=== PATIENT | female | born 1965 | race Caucasian/White ===

== ENCOUNTER 2019-02-25 11:27 | Outpatient (CLI) | payer MEDICAID ==
[2019-02-25] VITALS (21 sets, daily range): BP systolic 106–139; BP diastolic 75–98
[~2019-02-25 11:27] MED LIST: BACL20TA PO; DIAZ10TA PO; DIAZ5TAB PO; DULO-31 PO; GABA600T PO; HYDR-4383 PO; IBUP-24 PO; PANT-47 PO; PROC-8 PO; TRAM50TA2 PO; WARF6TAB PO
== END 2019-02-25 23:59 | disposition home or self-care (01) ==
LOC: CARD DIAG 11:27
PROVIDERS: ATTEND Internal Medicine Cardiovascular Disease
DX: R55 Syncope and collapse (principal); I10 Essential (primary) hypertension; F17.200 Nicotine dependence, unspecified, uncomplicated; Z79.01 Long term (current) use of anticoagulants; Z79.899 Other long term (current) drug therapy; Z86.718 Personal history of other venous thrombosis and embolism
CPT/HCPCS: 93660

== ENCOUNTER 2022-04-09 14:27 | Emergency (ER) | payer MEDICAID ==
[~2022-04-09] VITALS: Ht 170.2 cm; Wt 64.1 kg
[2022-04-09 15:15] VITALS: BP 120/79
== END 2022-04-09 16:29 | disposition home or self-care (01) ==
LOC: ER 14:27
DX: S93.402A Sprain of unspecified ligament of left ankle, initial encounter (principal); M25.572 Pain in left ankle and joints of left foot; I10 Essential (primary) hypertension; K21.9 Gastro-esophageal reflux disease without esophagitis; G89.29 Other chronic pain; F15.90 Other stimulant use, unspecified, uncomplicated; F11.90 Opioid use, unspecified, uncomplicated; Z86.718 Personal history of other venous thrombosis and embolism; Z90.710 Acquired absence of both cervix and uterus; Z98.890 Other specified postprocedural states; Z88.5 Allergy status to narcotic agent; Z79.899 Other long term (current) drug therapy; W01.0XXA Fall on same level from slipping, tripping and stumbling without subsequent striking against object, initial encounter; Y93.K1 Activity, walking an animal; Y92.89 Other specified places as the place of occurrence of the external cause; Y99.8 Other external cause status
CPT/HCPCS: 73564; 73610; 73630; 99284; L4360

== ENCOUNTER 2024-01-26 14:40 | Outpatient (CLI) | payer MEDICAID ==
[~2024-01-26 14:40] MED LIST changes: +DIAZ-546 PO; -DIAZ10TA PO
== END 2024-01-26 23:59 | disposition home or self-care (01) ==
LOC: RAD 14:40
PROVIDERS: ATTEND Student in an Organized Health Care Education/Training Program
DX: M54.50 Low back pain, unspecified (principal)
CPT/HCPCS: 72070; 72110

== ENCOUNTER 2024-11-09 12:07 | Emergency (ER) | payer MEDICAID ==
[~2024-11-09] VITALS: Ht 175.3 cm; Wt 63.1 kg
[2024-11-09] MEDS: docusate sodium 100mg/10ml UD cup PO SCH (12:25)
[2024-11-09] MEDS ORDERED: NEOM10SO7 LEFT EAR (13:09)
[2024-11-09] MEDS ORDERED: PRED50TA PO (13:09)
[2024-11-09] MEDS ORDERED: PROM118S5 PO (13:09)
== END 2024-11-09 13:43 | disposition home or self-care (01) ==
LOC: ER 12:08
DX: H61.22 Impacted cerumen, left ear (principal); R05.9 Cough, unspecified; I10 Essential (primary) hypertension; K21.9 Gastro-esophageal reflux disease without esophagitis; F15.90 Other stimulant use, unspecified, uncomplicated; F11.90 Opioid use, unspecified, uncomplicated; Z88.5 Allergy status to narcotic agent; Z88.6 Allergy status to analgesic agent; Z88.8 Allergy status to other drugs, medicaments and biological substances; Z90.710 Acquired absence of both cervix and uterus
CPT/HCPCS: 69209; 71045; 99283

== ENCOUNTER 2025-03-01 12:26 | Outpatient (CLI) | payer MEDICAID ==
[~2025-03-01 12:26] MED LIST changes: +NEOM10SO7 LEFT EAR; +PRED50TA PO
[2025-03-01 12:55] LABS: BASOPHILS # (AUTO) 0.1 X10'3 (0-0.2); EOSINOPHILS # (AUTO) 0.2 X10'3 (0-0.9); EOSINOPHILS % (AUTO) 2.9 % (0-6); HEMATOCRIT 43.2 % (35.0-45.0); HEMOGLOBIN 14.5 g/dl (12.0-16.0); LYMPHOCYTES # (AUTO) 2.6 X10'3 (1.1-4.8); LYMPHOCYTES % (AUTO) 33.6 % (21-51); MEAN CORPUSCULAR HEMOGLOBIN 31.4 PG (27.0-31.0); MEAN CORPUSCULAR HGB CONC 33.6 g/dL (33.0-36.5); MEAN CORPUSCULAR VOLUME 93.5 FL (78-98); MEAN PLATELET VOLUME 7.5 FL (7.4-10.4); MONOCYTES # (AUTO) 0.7 X10'3 (0-0.9); MONOCYTES % (AUTO) 8.7 % (2-12); NEUTROPHILS # (AUTO) 4.2 X10'3 (1.8-7.7); NEUTROPHILS % (AUTO) 53.8 % (42-75); PLATELET COUNT 314 X10'3 (140-440); RED BLOOD COUNT 4.62 X10'6 (4.20-5.60); RED CELL DISTRIBUTION WIDTH 13.9 % (11.5-14.5); WHITE BLOOD COUNT 7.7 X10'3 (4.5-11.0)
[2025-03-01 13:23] LABS: ALANINE AMINOTRANSFERASE 20 U/L (12-78); ALBUMIN 4.1 G/DL (3.4-5.0); ALBUMIN/GLOBULIN RATIO 1.3 (1.1-1.5); ALKALINE PHOSPHATASE 97 IU/L (46-116); ANION GAP 7 (8-16); ASPARTATE AMINO TRANSFERASE 15 U/L (10-37); BILIRUBIN,TOTAL 0.3 MG/DL (0.1-1.0); BLOOD UREA NITROGEN 20 MG/DL (7-18); CALCIUM 9.1 MG/DL (8.5-10.1); CHLORIDE 107 MMOL/L (99-107); GLUCOSE 100 MG/DL (70-104); POTASSIUM 4.2 MMOL/L (3.5-5.1); SODIUM 142 MMOL/L (135-145); TOTAL CARBON DIOXIDE 27.9 MMOL/L (24-32); TOTAL PROTEIN 7.3 G/DL (6.4-8.2); eGFR 73 ML/MIN
[2025-03-01] MEDS ORDERED: GADOTERATE MEGLUMINE 7.5 MMOL/15 ML VIAL IV ONE (15:24)
--- NOTE | 2025-03-01 20:59 | RADIOLOGY REPORT ---
EXAM: MR MRI HEAD HISTORY: SENSORINEURAL HEARING LOSS, BILATERAL COMPARISON: None TECHNIQUE: Coverage: Brain with detailed imaging of the internal auditory canals and posterior fossa IV contrast: 12 mL of Clariscan Adverse events: None Patient was screened for magnet prior to scan. Multisequence, multiplanar imaging. FINDINGS: INTERNAL AUDITORY CANALS: No mass or abnormal enhancement identified. Cranial nerves VII and VIII ar e unremarkable. SUPRATENTORIAL REGION: No acute abnormality. No suspicious lesion. POSTERIOR FOSSA: No acute abnormality. No suspicious lesion. BRAINSTEM: Unremarkable. SUPRASELLAR/SELLAR REGION: Within normal limits. VENTRICLES, CISTERNS, SULCI: Age-appropriate. ORBITS: Unremarkable. PARANASAL SINUSES: Unremarkable. MASTOID AIR CELLS: Small bilateral mastoid effusions. VASCULATURE: Unremarkable. BONES/SOFT TISSUES: No acute abnormality. OTHER: None. IMPRESSION: 1. No suspicious abnormality the posterior fossa, cerebellopontine angles and internal auditory canal s. Specifically, no discrete lesion along the cranial nerves VII and VIII. 2. No acute intracranial abnormality or suspicious lesion. 3. Small bilateral mastoid effusions.
== END 2025-03-01 23:59 | disposition home or self-care (01) ==
LOC: MRI 12:26
PROVIDERS: ATTEND Student in an Organized Health Care Education/Training Program
DX: H70.93 Unspecified mastoiditis, bilateral (principal); H90.3 Sensorineural hearing loss, bilateral; F41.9 Anxiety disorder, unspecified
CPT/HCPCS: 36415; 70553; 80053; 85025; A9575